=== PATIENT | female | born 1995 | race African-American/Black ===

== ENCOUNTER 2018-10-09 16:35 | Emergency (ER) | payer MEDICAID ==
[~2018-10-09] VITALS: Ht 154.9 cm; Wt 79.7 kg
[2018-10-09 16:38] VITALS: TEMP 98.8
[2018-10-09] MEDS ORDERED: PHENERGAN 25 TA25 MG PO (17:06)
[2018-10-09 18:13] VITALS: BP 110/64; PULSE 98
== END 2018-10-09 18:15 | disposition home or self-care (01) ==
LOC: COL.ER 16:35
DX: K52.9 Noninfective gastroenteritis and colitis, unspecified (principal)
CPT/HCPCS: J0780; J2405; J7030

== ENCOUNTER 2020-03-28 09:06 | Emergency (ER) | payer OTHER ==
[~2020-03-28] VITALS: Ht 157.5 cm; Wt 90.9 kg
[~2020-03-28 09:06] MED LIST: PHENERGAN 25 TA25 MG PO
[2020-03-28] MEDS ORDERED: FLONASE NASAL S16 GM NS (09:26)
[2020-03-28 09:52] VITALS: BP 123/70; PULSE 85; TEMP 98.1
== END 2020-03-28 09:35 | disposition home or self-care (01) ==
LOC: COL.ER 09:06
DX: H69.91 Unspecified Eustachian tube disorder, right ear (principal); J00 Acute nasopharyngitis [common cold]

== ENCOUNTER 2021-07-02 15:16 | Emergency (ER) | payer OTHER ==
[~2021-07-02 15:16] MED LIST changes: +FLONASE NASAL S16 GM NS
== END 2021-07-02 15:43 | disposition left against medical advice (07) ==
LOC: COL.ER 15:16
DX: R69 Illness, unspecified (principal)

== ENCOUNTER → 2021-10-07 | Outpatient (CLI) | payer OTHER | LOC: COL.RAD 10:02 | DX: G93.2 Benign intracranial hypertension (principal) ==

== ENCOUNTER 2023-04-07 17:29 | Emergency (ER) | payer OTHER ==
[~2023-04-07] VITALS: Ht 157.5 cm; Wt 86.4 kg
[2023-04-07 17:33] VITALS: BP 126/73; PULSE 96; TEMP 98
[2023-04-07 17:55] LABS: COLLECTION METHOD CLEAN CATCH
[2023-04-07 18:05] LABS: PH 5.5 (5.0-8.5); URINE APPEARANCE Clear (CLEAR/HAZY); URINE BLOOD TRACE-INTACT (NEGATIVE); URINE COLOR Yellow (YELLOW); URINE GLUCOSE Negative (NEGATIVE); URINE KETONE TRACE (NEGATIVE); URINE NITRATE Negative (NEGATIVE); URINE PROTEIN(semi-quant) Negative (NEGATIVE); URINE UROBILINOGEN 0.2 E.U/dL (0.2-1.0)
[2023-04-07 18:08] LABS: URINE BACTERIA Occasional /hpf (NONE SEEN); URINE RBC 0-2 /hpf (0-2)
[2023-04-09] MEDS ORDERED: FLAGYL500 MG PO (19:11)
== END 2023-04-07 18:41 | disposition home or self-care (01) ==
LOC: COL.ER 17:29
PROVIDERS: Nurse Practitioner Primary Care
DX: R10.31 Right lower quadrant pain (principal); R10.32 Left lower quadrant pain; Z87.891 Personal history of nicotine dependence